=== PATIENT | female | born 1990 | race Hispanic/Latino ===

== ENCOUNTER 2022-04-28 12:12 | Emergency (ER) | payer SELFPAY ==
[2022-04-28] MEDS ORDERED: Orphenadrine Citrate 60 MG/2 ML VIAL ONE (13:24)
[2022-04-28] MEDS ORDERED: Dexamethasone 10 MG/ML VIAL ONE (13:24)
[2022-04-28] MEDS ORDERED: Ketorolac Tromethamine 60 MG/2 ML VIAL ONE (13:24)
[2022-04-28 13:27] LABS: Bilirubin Negative (Negative); Blood, Urine Moderate (Negative); Clarity Hazy (Clear); Glucose, Urine (Dipstick) Negative (Negative); Ketone, Urine Negative (Negative); Leukocyte Small (Negative); Nitrite Negative (Negative); Pregnancy Test - Urine (BHCG) Negative (Negative); Protein, Urine (Dipstick) Negative (Neg-Trace); Specific Gravity, Urine 1.025 (1.005-1.030); Urobilinogen 0.2 mg/dL (Less than 2)
[2022-04-28 13:28] LABS: Pregu Control Background? CLEAR/WHITE (CLR/WHITE); Pregu Control Bar Appear? YES (CONTROL BAR); Specific Gravity 1.025 (1.002-1.036)
[2022-04-28 13:34] LABS: Bacteria/HPF Rare-Few HPF (None Seen); Mucous/LPF 2+ LPF (<2+); Squamous Epithelial 0-3 HPF (0-3); WBC/HPF 0-3 HPF (0-3)
== END 2022-04-28 15:06 | disposition home or self-care (01) ==
LOC: MADERS 12:12
DX: M54.16 Radiculopathy, lumbar region (principal)
CPT/HCPCS: 72131; 81003; 81015; 81025; 96372; J1100; J1885; J2360

== ENCOUNTER 2025-04-15 05:07 | Emergency (ER) | payer SELFPAY | END 2025-04-15 05:57 | disposition home or self-care (01) | LOC: MADERS 05:07 | DX: H00.11 Chalazion right upper eyelid (principal) ==